=== PATIENT | female | born 1985 | race Caucasian/White ===

== ENCOUNTER → 2022-11-11 | Outpatient (CLI) | payer OTHER ==
--- NOTE | 2022-11-13 15:04 | P.PCN ---
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 The patient came to see me at the sleep Center because of excessive tiredness and sleepiness. The patient has been having the same problem for the past 20 years. She has history of chronic depression and the patient has been treated with a combination of Lamictal 100 mg 3 times a day, Wellbutrin 150 mg by mouth daily. The patient also has history of migraines. Please refer to my detailed consultation note regarding her history. The patient has an Austin score of 13. Her chronic sleepiness was essentially unexplained. As such, the patient was offered a screening polysomnography. 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 The pertinent findings Height is 5 feet and 5 inches, weight is 147 pounds, body mass index is 24.5 Technical description The sleep evaluation of the patient consisted of a clinical polysomnography, nocturnal respiratory battery, left and right anterior tibialis surface electromyography. The standard montage with clinical polysomnography included the EEG, EOG, EMG and EKG. The respiratory battery included measurements of the nasal and buccal airflow, thoracic and abdominal efforts and intercostal surface EMG. Nocturnal oxyhemoglobin saturation was obtained by finger oximetry. This individual nodule monitoring was done throughout the night to check for parasomnias Study overview The patient spent a total of 7 hours and 33 minutes in bed. The total sleep time was 7 hours and 19 minutes. The overall sleep efficiency was 96.9%. Latency to sleep onset was 4.9 minutes and latency to REM sleep was 195 minutes. Sleep architecture was Asked by 2.5% stage I, 60.6% stage II, 20% effaced and 16.8% in rem sleep. Sleep continuity summary The patient has also 137 arousals with an arousal index of 18.7 Respiratory summary The patient had a total of 1 obstructive apnea, 0 mixed apnea, 7 central apnea, and 2 obstructive hypopneas and the patient's AHI was 1.4. Oxygenation analysis No significant oxygen desaturations were encountered throughout the sleep study the patient was able to maintain a pulse ox above 90% Cardiac summary Average heart rate was 68 with a minimum heart rate was being at 52 and a maximum heart rate was 98 and the rhythm was sinus Limb movement summary The patient had total of 8 periodic limb movements activity with an index of 1.1 Assessment No evidence of any sleep breathing disorder. Primary snoring. Patient is AHI was at 1.4 and the patient had no significant nocturnal oxygen desaturations Normal sleep efficiency of 97% Adequate sleep architecture No evidence of any periodic limb movements activity Plan Proceed with MSLT to objectively evaluate the patient's sleepiness and screen this patient for narcolepsy. Noted the patient has been off SSRIs prior to this procedure.
--- NOTE | 2022-11-13 15:11 | P.PCN ---
Date of Procedure: 11/06/22 Operative Findings: This is a 36-year-old female patient with chronic hypersomnia and sleepiness. The patient has not for score of 13. The patient has a history of chronic depression and migraine. The patient was taken off SSRIs prior to this procedure. Note that this MSLT was preceded by a full night polysomnography during which the patient achieved more than 6 hours of sleep. Standardized testing condition was used to complete this MSLT. The montage for MSLT included EEG, EOG, EMG. The patient was given a total of 5 naps. This individual nodule monitoring was done throughout this MSLT. Date of service is 11/06/2022 Results The patient was offered a total of 5 naps. The patient was able to fall asleep on every single nap. The sleep latency for nap #1 was 3.6 minutes, nap #2 was 5.3 minutes, nap #3 was 3 minutes, nap #4 was 1.5 minutes and nap #5 was 6.7 minutes. The mean sleep latency for those 5 naps was 4 minutes and there was no REM onset sleep Assessment Primary idiopathic hypersomnia. The patient has pathologic hypersomnia and sleepiness. Nevertheless, she does not fit the criteria for narcolepsy. In fact, the patient has MSLT that is consistent with primary idiopathic hypersomnia. She is symptomatic and this is affecting her overall functionality. Note that the testing was done while the patient was off SSRI. Plan The patient is going to come to the office to discuss treatment options. The patient will need daytime stimulation to improve her functionality. I'm in favor of starting this patient on Provigil 200 mg in the morning and assess her clinical response accordingly. Further adjustments on her medication without based on clinical response. Results of the polysomnography and MSLT will be discussed with the patient length and we'll continue to follow.
--- NOTE | 2022-11-13 15:36 | P.PN ---
Progress Note - Text Progress Note Date: 11/11/22 +36-year-old female patient, who is chronically somnolent and sleepy, came into the sleep Center to undergo further evaluation regarding her chronic hypersomnia. 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 She has history of chronic migraine and depression. The patient has been taking a combination of Lamictal and Wellbutrin. No obvious comorbid conditions to explain her symptoms. Based on that, the patient was given a screening polysomnography and the secondary MSLT. The polysomnography was negative. The MSLT was abnormal he has not consistent with narcolepsy. Noted the patient does not have any sleep paralysis, hallucinations or cataplexy. The MSLT showed that the patient immediately sleep latency of 4 minutes. No REM onset sleep. As such, the results are more consistent with primary idiopathic hypersomnia. She has no other complaints otherwise for now. She is coming in for further advice. Noted the study was done while the patient was off Wellbutrin. Vitals BP is 117/73, pulse is 80 and respirations 16 and temperature 97.1. Body mass index 24.5 and her weight is 147 pounds. The patient appeared well nourished and normally developed. Vital signs as documented. Head exam is unremarkable. No scleral icterus or corneal arcus noted. Neck is without jugular venous distension, thyromegaly, or carotid bruits. Carotid upstrokes are brisk bilaterally. Lungs are clear to auscultation and percussion. Cardiac exam reveals the PMI to be normally sized and situated. Rhythm is regular. First and second heart sounds normal. No murmurs, rubs or gallops. Abdominal exam reveals normal bowel sounds, no masses, no organomegaly and no aortic enlargement. Extremities are nonedematous and both femoral and pedal pulses are normal.Examination of the skin revealed no evidence of significant rashes, suspicious appearing nevi or other concerning lesions.Neurologically, the patient is awake and alert and the patient does not have any focal neurological deficit. Cranial nerves are essentially intact. Assessment Primary idiopathic hypersomnia. The workup which included the polysomnography and secondary MSLT did not meet the criteria for narcolepsy. The patient has primary idiopathic hypersomnia and she needs stimulant therapy as the patient's functionality has been essentially affected and the patient is excessively and pathologically somnolent and sleepy. Plan Restart Wellbutrin The patient will be started on Provigil 200 mg by mouth daily. Appropriate precautions was given in terms of and interaction with OCPs. The patient will maintain regular sleep schedule. The patient asked to sleep more than 7 hours probably in order of 8-9 hours per day. Taking naps is advised especially if the patient gets some relief from taking naps. We'll make further adjustments on her medication based on clinical response. We'll continue to follow. She'll be following up with me in the main pulmonary clinic in 3 months time after starting the Provigil.
== END ==
LOC: SLEEP 14:49
PROVIDERS: ATTEND Internal Medicine Critical Care Medicine
DX: G47.11 Idiopathic hypersomnia with long sleep time (principal); G47.419 Narcolepsy without cataplexy
CPT/HCPCS: 99212

== ENCOUNTER 2025-01-05 19:00 | Inpatient (IN) | payer BC ==
[2025-01-09] MEDS ORDERED: miSOPROStoL 200 MCG TAB PO PRN (19:54)
[2025-01-09] MEDS ORDERED: METHYLERGONOVINE 0.2 MG/ML 1 ML AMP IM PRN (19:54)
[2025-01-09] MEDS ORDERED: TERBUTALINE 1 MG/ML VIAL SQ PRN (19:54)
[2025-01-09] MEDS ORDERED: TRANEXAMIC 1,000 MG/100ML-NACL 1,000 MG in EMPTY BAG 1 BAG IV PRN (19:54)
[2025-01-09] MEDS ORDERED: LIDOCAINE 0.5% (PF) 5 MG/ML (50 ML SDV) SQ PRN (19:54)
[2025-01-09] MEDS ORDERED: CARBOPROST TROMETHAMINE 250 MCG/ML 1 ML AMP IM PRN (19:54)
[2025-01-09] MEDS ORDERED: OXYTOCIN 10 UNIT/ML 1 ML VIAL IM PRN (19:54)
[2025-01-09] MEDS ORDERED: miSOPROStoL 200 MCG TAB RECTAL PRN (19:54)
[2025-01-09] MEDS: LACTATED RINGERS 1,000 ML IV SCH (20:18)
[2025-01-09 20:21] LABS: Basophils # (A) 0.03 10*3/uL (0.00-0.10); Basophils % (A) 0.4 %; Eosinophils # (A) 0.03 10*3/uL (0.04-0.35); Eosinophils % (A) 0.4 %; HCT 33.7 % (37.2-46.3); HGB 12.3 g/dL (12.0-15.0); Lymphocytes # (A) 2.21 10*3/uL (0.90-5.00); Lymphocytes % (A) 28.2 %; MCHC 36.5 g/dL (32.0-37.0); Mean Platelet Volume 11.6 fL (9.5-12.2); Monocytes # (A) 0.54 10*3/uL (0.20-1.00); Monocytes % (A) 6.9 %; Neutrophils # (A) 4.98 10*3/uL (1.80-7.70); Neutrophils % (A) 63.6 %; Platelet Count 189 10*3/uL (140-440); RBC 3.51 10*6/uL (4.10-5.20); RDW 13.2 % (11.5-14.5); WBC 7.83 10*3/uL (4.50-10.00)
[2025-01-09] MEDS: OXYTOCIN 30 UNITS/500 ML NS 30 UNIT in SALINE 1 500ML.BAG IV SCH (20:24)
[2025-01-10 07:20] LABS: Glucose,Whole Blood 82 mg/dL (70-110)
[2025-01-10] MEDS ORDERED: BUTORPHANOL 1 MG/ML 1 ML VIAL IV PRN (08:38)
--- NOTE | 2025-01-10 08:45 | P.HPOB ---
History of Present Illness H&P Date: 01/10/25 Chief Complaint: 40-6/7 weeks, induction, previous section 2 para 1-0-0-1 admitted at 40-6/7 weeks as established by dating parameters at a previous office. She presents for postdates induction of labor with an unfavorable cervix. She was admitted last evening for low-dose Pitocin in an attempt for cervical ripening as she is not section and request for vaginal trial of labor. Her has been complicated by gestational diabetes with excellent blood sugar control throughout with diet alone. Testing has been reassuring on a weekly basis in the third trimester. She is also Rh- and received RhoGAM at 28 weeks. She follows into the category of advanced maternal age and declined trisomy testing. On labor delivery, all sig ns are reassuring with a category 1 heart rate tracing. Group B strep status is negative. Obstetrical history: 2 para 1-0-0-1 with 1 previous term section for breech. Current statistics are listed in history of present illness. EDC the of 01/04/2025 was established at a previous physician's office by good dating parameters. Laboratory workup demonstrates a blood type of O- with a negative antibody screen. Rubella status is immune. The remainder of the laboratory workup was within normal limits. 1 hour Glucola was elevated and followed by an abnormal 3-hour glucose tolerance test. Group B strep status is negative. Gynecologic history: Unremarkable with no history of any infections to include STDs. Review of Systems Review of systems is confined to history of present illness. Past Medical History Additional Past Medical History / Comment(s): Migraine, history of depression/bipolar disorder History of Any Multi-Drug Resistant Organisms: None Reported Past Surgical History: Section Additional Past Surgical History / Comment(s): Inner ear surgery Past Anesthesia/Blood Transfusion Reactions: No Reported Reaction Past Psychological History: Bipolar, Depression Smoking Status: Never smoker Medications and Allergies Home Medications Medication Instructions Recorded Confirmed Type Aspirin [Adult Low Dose Aspirin EC] 81 mg PO DAILY 01/08/25 01/08/25 History Ferrous Sulfate [Feosol] 325 mg PO DAILY 01/08/25 01/08/25 History Folic Acid 1 mg PO DAILY 01/08/25 01/08/25 History Vit No.179/Iron/Folic 1 each PO DAILY 05/18/25 05/18/25 History [ Tablet] Allergies Allergy/AdvReac Type Severity Reaction Status Date / Time No Known Allergies Allergy Verified 01/09/25 19:53 Exam Intake and Output 01/09/25 01/10/25 01/10/25 22:59 06:59 14:59 Other: # Voids 1 Weight 66.678 kg No acute distress. Her heart has a regular rhythm and rate without murmur. Her lungs are clear to auscultation bilaterally in all timmons. Her abdomen is gravid, nondistended, has normal active bowel sounds, is soft, nontender, and without any palpable masses aside from the uterine fundus. Her extremities are without any cyanosis, clubbing, or edema and are nontender to palpation bilaterally. Digital cervical examination demonstrates her cervix to remain fingertip and dilation, 50 to 60% effaced, with the vertex and presentation at -2-3 station. No significant change has been made with low-dose Pitocin overnight. Results Result Diagrams: 01/09/25 20:06 Abnormal Lab Results - Last 24 Hours (Table) 01/09/25 Range/Units 20:06 RBC 3.51 L (4.10-5.20) 10*6/uL Hct 33.7 L (37.2-46.3) % MCH 35.0 H (27.0-32.0) pg Eosinophils # 0.03 L (0.04-0.35) 10*3/uL Assessment and Plan (1) Previous section Current Visit: Yes Status: Acute Code(s): Z98.891 - HISTORY OF UTERINE SCAR FROM PREVIOUS SURGERY SNOMED Code(s): 285137863 (2) Post-dates Current Visit: Yes Status: Acute Code(s): O48.0 - POST-TERM SNOMED Code(s): 97661966 Plan: The patient has been admitted for Pitocin induction. Pitocin has been started. I am unable to perform rupture of membranes at this time given her unfavorable cervical status. She will have Pitocin run per protocol and we will attempt artificial rupture of membranes at the earliest possible feasible time. I have discussed with the patient that should she make no change throughout the day, she would have the option of stopping and resuming with another method of cervical ripening, possibly Dilapan, versus proceeding with repeat low- transverse section. She will continue to have close maternal and surveillance and expectant management will be practiced. She is a good candidate for either IV or epidural analgesia, chart she may choose.
[2025-01-10] MEDS ORDERED: TRANEXAMIC 1,000 MG/100ML-NACL 1,000 MG in EMPTY BAG 1 BAG IV PRN (16:25)
[2025-01-10] MEDS: ceFAZolin 2 GM in DEXTROSE 5% IN WATER 50 ML IVPB ONE (16:56)
[2025-01-10] MEDS: CITRIC ACID-SODIUM CITRATE 15 ML CUP PO ONE (16:56)
[2025-01-10] MEDS ORDERED: PHENYLEPHRINE-0.9% NACL SYG 1,000 MCG/10 ML SYRINGE ONE (17:38)
[2025-01-10] MEDS ORDERED: ePHEDrine 50 MG/ML 1 ML VIAL ONE (17:38)
[2025-01-10] MEDS ORDERED: OXYTOCIN 10 UNIT/ML 1 ML VIAL ONE (17:38)
[2025-01-10] MEDS ORDERED: MORPHINE SULFATE (PF) 0.3 MG/0.3 ML SYR ONE (17:38)
[2025-01-10] MEDS ORDERED: KETOROLAC 30 MG/ML 1 ML VIAL ONE (17:38)
[2025-01-10] MEDS ORDERED: ONDANSETRON 4 MG/2 ML VIAL ONE (17:38)
[2025-01-10] MEDS ORDERED: NALBUPHINE (ANES) 10 MG/ML - 1 ML AMP ONE (17:38)
[2025-01-10] MEDS ORDERED: diphenhydrAMINE 50 MG/ML 1 ML VIAL IVP PRN ×2 (18:41)
[2025-01-10] MEDS ORDERED: ZOLPIDEM 5 MG TAB PO PRN (18:41)
[2025-01-10] MEDS ORDERED: diphenhydrAMINE 25 MG CAP PO PRN (18:41)
[2025-01-10] MEDS ORDERED: LANOLIN CREAM 1 GM TUBE TOPICAL PRN (18:41)
[2025-01-10] MEDS ORDERED: METOCLOPRAMIDE 5 MG/ML 2 ML VIAL IVP PRN (18:41)
[2025-01-10] MEDS ORDERED: diphenhydrAMINE 50 MG CAP PO PRN (18:41)
[2025-01-10] MEDS ORDERED: NALOXONE 0.4 MG/ML 1 ML VIAL IV PRN (18:41)
[2025-01-10] MEDS ORDERED: ONDANSETRON 4 MG/2 ML VIAL IVP PRN (18:41)
[2025-01-10] MEDS ORDERED: OXYTOCIN 30 UNITS/500 ML NS 30 UNIT in SALINE 1 500ML.BAG IV SCH (18:45)
--- NOTE | 2025-01-10 18:54 | P.OP ---
Date of Procedure: 01/10/25 Preoperative Diagnosis: #1. 40-6/7 weeks, induction of diabetes #3. Previous section, requesting vaginal trial of labor #4. Rh- #5. Undesired fertility Postoperative Diagnosis: Same Procedure(s) Performed: #1. Elective repeat low-transverse section Anesthesia: spinal Surgeon: Daniel Childress Medical Observer #1: Frances Murphy Estimated Blood Loss (ml): 440 IV fluids (ml): 500 Urine output (ml): 100 Pathology: none sent Condition: stable Disposition: floor Operative Findings: Briefly, the patient had undergone low-dose Pitocin overnight and then Pitocin per protocol this morning as her cervix remained unfavorable. At approximately 1145 this morning, I was able to dilate her cervix to 1-1/2 cm and the fact artificial rupture of membranes for clear fluid. She began gema much more regularly throughout the afternoon cervical check late in the afternoon at approximately 5 in the afternoon demonstrated no significant or appreciable change from earlier in the day at which time the patient requested to halt the induction and proceed with repeat low-transverse section. At that time, she was questioned regarding her desire for further childbearing and declined instead requesting intraoperative bilateral salpingectomy. She was thereafter taken to the operating where she was delivered of 6 pound 8 ounce baby boy with Apgars of 9 at 1 minute and 9 at 5 minutes in the occiput anterior position placenta was delivered manually, intact, grossly normal with a grossly normal three-vessel cord. The uterus, tubes, and ovaries were entirely normal to inspection though there was a small 1 cm subserosal fibroid on the left fundal portion of the uterus. The bilateral fallopian tubes were removed from the fimbriated end to the cornual insertion and sent for pathological diagnoses. Description of Procedure: The patient was prepped and draped in usual fashion after spinal anesthesia was administered by the anesthesiologist. A Pfannenstiel incision was made through her pre-existing scar and extended into the abdominal cavity without difficulty. The bladder peritoneum was elevated, incised, and reflected distally centimeter incision was made in the transverse plane of the lower uterine segment to enter the uterus at which time clear fluid was again noted. The uterine incision was extended in both directions using the bandage scissors. head was delivered up and through the incision where the nose and mouth were thoroughly suction. The remainder of the was delivered onto the field where the cord was doubly clamped, cut, and the infant passed for resuscitative measures with weight and Apgars as noted above. cord blood was collected per protocol. The placenta was then delivered manually, intact, and grossly normal with a grossly normal three-vessel cord. The uterus, tubes, and ovaries were entirely normal to inspection. The margins of the uterine incision were grasped with Steward clamps and the incision closed in a single running locking stitch of 0 chromic catgut from margin to margin. There was some ongoing bleeding near the right angle of the incision which was made hemostatic with 2 [id number] stitches of 0 chromic catgut. After ensuring hemostasis, the posterior cul-de-sac was suctioned with a guard followed by a laparotomy sponge. The uterus was prepped of any remaining blood, fluid, or clot. Reexamination of the incision demonstrated only small bleeding which was made hemostatic with the Bovie. Given a small degree of oozing, surgical hemostatic powder was applied to the. The parietal peritoneum was loosely reapproximated and the layer of muscles made hemostatic with the Bovie. The fascia was reapproximated with a running stitch of 0 Vicryl proceeding from margin to margin. The subcutaneous tissues were made hemostatic with the Bovie and then reapproximated with a running stitch of 3-0 plain catgut. The skin was reapproximated with a running subcuticular stitch of 4-0 Vicryl followed by half-inch Steri-Strips placed with Mastisol. Estimated blood loss for the case was approximately 440 mL. All sponge, instrument, and needle counts were correct. There were no complications. The patient tolerated the procedure well and proceeded to the recovery room in stable condition. Both mother and infant are resting comfortably in recovery.
[2025-01-10 19:39] VITALS: RESP 16
[2025-01-10] MEDS: LACTATED RINGERS 1,000 ML IV SCH (21:18)
[2025-01-10] MEDS: ACETAMINOPHEN TAB 500 MG TAB PO SCH (21:52)
[2025-01-10] MEDS: SENNOSIDES-DOCUSATE SODIUM 1 EACH TAB PO SCH (21:53)
[2025-01-11] MEDS: KETOROLAC 15 MG/ML 1 ML VIAL IVP PRN (01:57)
[2025-01-11 06:22] LABS: Basophils # (A) 0.03 10*3/uL (0.00-0.10); Basophils % (A) 0.3 %; Eosinophils # (A) 0.02 10*3/uL (0.04-0.35); Eosinophils % (A) 0.2 %; HCT 31.5 % (37.2-46.3); Lymphocytes # (A) 1.32 10*3/uL (0.90-5.00); Lymphocytes % (A) 14.3 %; MCHC 34.9 g/dL (32.0-37.0); MCV 100.3 fL (80.0-97.0); Monocytes # (A) 0.64 10*3/uL (0.20-1.00); Monocytes % (A) 6.9 %; Neutrophils # (A) 7.18 10*3/uL (1.80-7.70); Neutrophils % (A) 77.8 %; Platelet Count 146 10*3/uL (140-440); RBC 3.14 10*6/uL (4.10-5.20); RDW 13.4 % (11.5-14.5); WBC 9.24 10*3/uL (4.50-10.00)
--- NOTE | 2025-01-11 06:25 | P.PN ---
Progress Note - Text Progress Note Date: 01/11/25 Patient was seen and examined side. Received intrathecal morphine 300 mcg 6 for postop pain control as per surgeon request. Today postop day 1. Complaining pain levels 3-4 out of 10 in severity. Able to ambulate without any difficulty. Denied any weakness. Mild itching. Physical exam: Vitals : stable vitals, afebrile Assessment and plan: postop day 1 status post Continue oral pain medications as needed as per primary care. Please contact anesthesia as needed.
--- NOTE | 2025-01-11 09:34 | P.PNOBGPC ---
Subjective - Subjective Patient reports: Reports appetite normal, Reports voiding normally, Reports pain well controlled, Reports ambulating normally : doing well Objective - Vital Signs Latest vital signs: Vital Signs Temp Pulse Resp BP Pulse Ox 01/10/25 22:38 77 16 107/74 97 01/10/25 20:38 83 16 107/69 97 01/10/25 20:23 73 16 113/76 97 01/10/25 20:08 75 16 107/72 96 01/10/25 19:53 78 16 105/67 97 01/10/25 19:38 104 H 16 100/57 97 01/10/25 19:23 92 16 98/59 98 01/10/25 19:08 111 H 18 88/52 97 01/10/25 18:53 79 16 99/60 97 01/10/25 18:38 97.4 F L 59 L 16 116/60 98 Intake and Output 01/10/25 01/11/25 01/11/25 22:59 06:59 14:59 Intake Total 600 Output Total 827 350 Balance -827 250 Intake: Oral 600 Output: Urine 300 350 Uretheral ([place]) 350 Output, Quantitative 527 Blood Loss Other: Voiding Method Indwelling Catheter # Voids 5 - Exam Extremities: Present: normal Abdomen: Present: normal appearance, soft. Absent: distention, tenderness Incision: Present: normal, dry, intact Uterus: Present: normal, firm (The uterine fundus is tonic and appropriately tender below the umbilicus.) - Labs Labs: Abnormal Lab Results - Last 24 Hours (Table) 01/11/25 Range/Units 06:08 RBC 3.14 L (4.10-5.20) 10*6/uL Hgb 11.0 L (12.0-15.0) g/dL Hct 31.5 L (37.2-46.3) % MCV 100.3 H (80.0-97.0) fL MCH 35.0 H (27.0-32.0) pg Immature Gran # 0.05 H (0.00-0.04) 10*3/uL Eosinophils # 0.02 L (0.04-0.35) 10*3/uL Assessment and Plan (1) Previous section Current Visit: Yes Status: Acute Code(s): Z98.891 - HISTORY OF UTERINE SCAR FROM PREVIOUS SURGERY SNOMED Code(s): 389611239 (2) Post-dates Current Visit: Yes Status: Acute Code(s): O48.0 - POST-TERM SNOMED Code(s): 72751146 (3) S/P section Current Visit: Yes Status: Acute Code(s): Z98.891 - HISTORY OF UTERINE SCAR FROM PREVIOUS SURGERY SNOMED Code(s): 511124954 Plan: Continue routine and postoperative care. I have encouraged the patient to ambulate in the hallways routinely. I would anticipate discharge home tomorrow pending no complications. She is already tolerating a regular diet but has not yet voided since removal of the catheter.
[2025-01-11] MEDS: IBUPROFEN 800 MG TAB PO SCH (19:41)
[2025-01-12 08:21] VITALS: BP 110/70; PULSE 67; TEMP 97.7
--- NOTE | 2025-01-12 08:51 | P.DS ---
Providers Date of admission: 01/09/25 19:43 Expected date of discharge: 01/12/25 Attending physician: Daniel Childress Primary care physician: Stated None - Discharge Diagnosis(es) (1) Previous section Current Visit: Yes Status: Acute (2) Post-dates Current Visit: Yes Status: Acute (3) S/P section Current Visit: Yes Status: Acute Hospital Course: The patient is a 39-year-old 2 para 1-0-0-1 admitted at 40-6/7 weeks by good dating parameters. She is admitted for induction of labor with an unfavorable cervix. Her was complicated by gestational diabetes with excellent blood sugar control throughout. She also fell into the category of advanced maternal age and declined trisomy testing. On labor delivery, all signs were reassuring with a category 1 heart rate tracing. She had low- dose Pitocin started overnight which failed to significantly change her cervix. She had Pitocin augmentation started the following morning and we were ultimately able to dilate her cervix enough to break the bag of water at approximately 1-1/2 cm. Over the course of the remainder of the afternoon, she made no significant progress despite being significantly uncomfortable. At the end of the afternoon, she opted to stop the induction process and proceed with repeat low-transverse section. She additionally requested intraoperative bilateral salpingectomy. She was taken to the operating room where she underwent repeat low-transverse section in an uncomplicated fashion and was delivered of a viable 6 pound 8 ounce baby boy with Apgars of 9 at 1 minute and 5 minutes. She underwent bilateral salpingectomy in an uncomplicated fashion as well. Her and postoperative course was unremarkable with vital signs remaining stable and her temperature was afebrile throughout. She was deemed stable for discharge on and postoperative day #2 and was discharged home to follow-up in the office in 2 weeks for an incision check in 6 weeks routinely. Discharge instructions included calling for any significantly increased bleeding or foul-smelling lochia, significantly increased fever abdominal pain, perineal complaints, breast complaints, incisional complaints, or anything else that concerned her. She was additionally instructed to have nothing in the vagina for at least 6 weeks time to include intercourse and to abstain from any heavy lifting over the same period directed to do no driving until off of all pain medications or 2 weeks time, whichever came first. She understood her instructions and agrees to follow-up as noted above. Discharge medications included continued vitamins as she has opted to breast-feed. She was otherwise to use [id number] analgesic since. She was provided a prescription for oxycodone 5 mg, 1-2 p.o. q. hours as needed pain, #20 dispensed with no refills. Maternal blood type is O- and cord blood was sent for evaluation for the prior to discharge. Rubella status is immune. Discharge hemoglobin and hematocrit were 11.0 and 31.5 respectively. Procedures: #1.Pitocin induction #2. Artificial rupture of membranes #3. Repeat low- transverse section with intraoperative bilateral salpingectomy Patient Condition at Discharge: Stable Plan - Discharge Summary New Discharge Prescriptions: No Action Vit No.179/Iron/Folic [ Tablet] 1 each PO DAILY Aspirin [Adult Low Dose Aspirin EC] 81 mg PO DAILY Ferrous Sulfate [Feosol] 325 mg PO DAILY Folic Acid 1 mg PO DAILY Discharge Medication List Aspirin [Adult Low Dose Aspirin EC] 81 mg PO DAILY 01/08/25 [History] Ferrous Sulfate [Feosol] 325 mg PO DAILY 01/08/25 [History] Folic Acid 1 mg PO DAILY 01/08/25 [History] Vit No.179/Iron/Folic [ Tablet] 1 each PO DAILY 01/08/25 [History] Follow up Appointment(s)/Referral(s): Daniel Childress MD [STAFF PHYSICIAN] - 2 Weeks (Post C/S Appointment 01-31-2025 at 11:00am) Discharge Disposition: HOME SELF-CARE
[2025-01-12] MEDS ORDERED: IBUPROFEN 800 MG TAB PO SCH (20:00)
== END 2025-01-12 13:40 | disposition home or self-care (01) | DRG 785 ==
LOC: 4FBP 01-09 19:43
PROVIDERS: ADMIT Obstetrics & Gynecology; ATTEND Obstetrics & Gynecology
PROC: 10D00Z1 Extraction of Products of Conception, Low, Open Approach (ICD-10-PCS; principal; 2025-01-11)
PROC: 0UB70ZZ Excision of Bilateral Fallopian Tubes, Open Approach (ICD-10-PCS; 2025-01-11)
DX: O34.211 Maternal care for low transverse scar from previous cesarean delivery (principal); D25.2 Subserosal leiomyoma of uterus; O24.429 Gestational diabetes mellitus in childbirth, unspecified control; O34.13 Maternal care for benign tumor of corpus uteri, third trimester; O48.0 Post-term pregnancy; O99.344 Other mental disorders complicating childbirth; O26.893 Other specified pregnancy related conditions, third trimester; O99.73 Diseases of the skin and subcutaneous tissue complicating the puerperium; F31.9 Bipolar disorder, unspecified; Z37.0 Single live birth; G43.909 Migraine, unspecified, not intractable, without status migrainosus; L29.9 Pruritus, unspecified; Z30.2 Encounter for sterilization; Z3A.40 40 weeks gestation of pregnancy; Z79.82 Long term (current) use of aspirin
CPT/HCPCS: 85025; 86850; 86900; 86901; 88302

== ENCOUNTER 2025-01-08 13:57 | Outpatient (CLI) | payer BC ==
[2025-01-08 14:51] VITALS: BP 115/74; PULSE 75; RESP 17; TEMP 96.2
--- NOTE | 2025-01-28 11:31 | P.MSEPDOC ---
Presenting Problems - Arrival Data Date of Arrival on Unit: 01/08/25 Time of Arrival on Unit: 13:57 Mode of Transport: Ambulatory - Complaint OB-Reason for Admission/Chief Complaint: Decreased Movement Comment: pt presesnts to triage for decreased movement Medical History - Information : 2 Para: 1 Term: 1 : 0 Abortions: Spontaneous or Elective: 0 Number of Living Children: 1 - Gestational Age Gestational Age by JADE (wks/days): 40 Weeks and 4 Days - History Complications: GDM, Prior Review of Systems - Review of Systems Constitutional: No problems Breast: No problems ENT: No problems Cardiovascular: No problems Respiratory: No problems Gastrointestinal: No problems Genitourinary: No problems Musculoskeletal: No problems Neurological: No problems Skin: No problems Vital Signs - Temperature Temperature: 96.2 F Temperature Source: Temporal Artery Scan - Pulse Right Brachial Pulse Rate: 75 Pulse Assessment Method: Automatic Cuff - Respirations Respiratory Rate: 17 Oxygen Delivery Method: Room Air - Blood Pressure Right Arm Blood Pressure: 115/74 Blood Pressure Mean: 87 Blood Pressure Source: Automatic Cuff Medical Screen Scoring - Uterine Contractions Intensity: Mild Resting: Soft to palpation - Assessment - Baby A Baseline FHR: 135 Heart Rate - NICHD Category: Category I (Normal) NST: Reactive Physician Notification - Notification Comment Comment: reactive nst Maternal Triage Index - Maternal Triage Index Presenting for scheduled procedure w/no complaint: No - Stat/Priority 1 Stat Priority 1: No - Urgent/Priority 2 Urgent Priority 2: Yes Provider Notified: Daniel Childress Provider Notified Time: 14:28 Criteria Met for Priority 2: pt presesnts to triage for decreased movement Disposition - Disposition OB Disposition: Triage, Discharge to home, Written follow up instructions reviewed Discharge Date: 01/08/25 Discharge Time: 14:40 I agree with the RN Medical Screening Exam: Yes Physician's MSE Comment: I have neither seen nor examined the patient. Case reviewed; plan agreed upon as documented in EMR&OBIX.: Yes Diagnosis: RELATED CONDITIONS, UNSPECIFIED, THIRD TRIMESTER
== END 2025-01-08 14:40 | disposition home or self-care (01) ==
LOC: FBPOP 13:57
PROVIDERS: ATTEND Obstetrics & Gynecology
DX: O36.8130 Decreased fetal movements, third trimester, not applicable or unspecified (principal); Z3A.40 40 weeks gestation of pregnancy
CPT/HCPCS: 59025; 99213